=== PATIENT | male | born 1960 | race Two or more races ===

== ENCOUNTER 2024-10-13 22:49 | Emergency (ER) | payer MEDICAID ==
[~2024-10-13] VITALS: Ht 170.2 cm; Wt 86.2 kg
[2024-10-13] MEDS: methylPREDNISolone SOD SUCC 125 MG/2 ML VIAL IV ONE (01:10)
[2024-10-13 23:00] VITALS: O2SAT 96
[2024-10-13] MEDS: IPRATROPIUM BROMIDE 0.5 MG/2.5 ML NEBU NEB ONE (23:00)
[2024-10-13] MEDS: ALBUTEROL SULFATE 2.5 MG/3 ML NEBU NEB ONE (23:00)
[2024-10-13 23:47] LABS: BASOPHILS # (AUTO) 0.1 K/UL (0.0-0.2); BASOPHILS % (AUTO) 0.4 % (0.0-2.0); EOSINOPHILS # (AUTO) 0.6 K/uL (0.0-0.7); EOSINOPHILS % (AUTO) 4.1 % (0.0-7.0); HEMATOCRIT 42.4 % (36.7-47.1); HEMOGLOBIN 13.9 g/dL (12.5-16.3); LYMPHOCYTES # (AUTO) 2.2 K/uL (0.8-4.8); LYMPHOCYTES % (AUTO) 14.8 % (20.5-51.5); MEAN CORPUSCULAR HEMOGLOBIN 29.9 uug (23.8-33.4); MEAN CORPUSCULAR HGB CONC 33 g/dL (32.5-36.3); MEAN CORPUSCULAR VOLUME 91.2 fL (73.0-96.2); MONOCYTES # (AUTO) 1.3 K/uL (0.1-1.30); MONOCYTES % (AUTO) 8.7 % (0.0-11.0); NEUTROPHILS # (AUTO) 10.6 K/uL (1.8-8.9); PLATELET COUNT (AUTO) 201 K/uL (152-348); RED BLOOD CELL COUNT(AUTO) 4.66 MIL/uL (4.06-5.63); RED CELL DISTRIBUTION WIDTH 14.6 % (12.1-16.2); WHITE BLOOD COUNT (AUTO) 14.8 K/uL (3.6-10.2)
[2024-10-14] MEDS ORDERED: IPRATROPIUM BROMIDE 0.5 MG/2.5 ML NEBU ONE (00:07)
[2024-10-14] MEDS ORDERED: ALBUTEROL SULFATE 2.5 MG/3 ML NEBU ONE (00:07)
[2024-10-14 00:14] LABS: DIFFERENTIAL COMMENT 1
[2024-10-14 00:40] LABS: ALANINE AMINOTRANSFERASE 56 U/L (16-63); ALBUMIN 3.7 g/dL (3.4-5.0); ALKALINE PHOSPHATASE 90 U/L (50-136); ASPARTATE AMINOTRANSFERASE 45 U/L (15-37); BILIRUBIN,DIRECT 0.2 mg/dL (0.0-0.2); BILIRUBIN,TOTAL 0.7 mg/dL (0.2-1.0); CALCIUM 8.5 mg/dL (8.5-10.1); CARBON DIOXIDE 31 mmol/L (21-32); CHLORIDE 102 mmol/L (98-107); CREATININE 1.3 mg/dL (0.6-1.3); GLUCOSE 122 mg/dL (74-106); NT-PRO BNP 4912 pg/mL (0-125); SODIUM SERUM 140 mmol/L (136-145); TOTAL PROTEIN, SERUM 7.3 g/dL (6.4-8.2); UREA NITROGEN, BLOOD 19 mg/dL (7-18)
[2024-10-14] MEDS ORDERED: FUROSEMIDE 40 MG/4 ML VIAL ONE (01:11)
[2024-10-14] MEDS ORDERED: methylPREDNISolone SOD SUCC 125 MG/2 ML VIAL ONE (01:11)
[2024-10-14] MEDS: FUROSEMIDE 40 MG/4 ML VIAL IV ONE (01:15)
[2024-10-14 01:22] LABS: ABG BASE EXCESS 1.1 mmol/L (-2.0-3.0); ABG HCO3 26.2 mmol/L (21.0-28.0); ABG PCO2 43.2 mmHg (35.0-48.0); ABG PH 7.401 (7.350-7.450); ABG PO2 48.9 mmHg (83.0-108.0); ABG SITE ALINE; ABG TOTAL HEMOGLOBIN 15.3 G/dL (13.5-17.5); AaDO2 84.5 mmHg; COHb 2.7 % (0.5-1.5); MetHb 0.1 % (0.0-1.5); O2Hb 84.3 % (94.0-98.0)
== END 2024-10-14 01:30 | disposition left against medical advice (07) ==
LOC: ER 22:49
DX: I50.9 Heart failure, unspecified (principal); H34.821 Venous engorgement, right eye; E11.9 Type 2 diabetes mellitus without complications; J44.1 Chronic obstructive pulmonary disease with (acute) exacerbation; Z99.81 Dependence on supplemental oxygen
CPT/HCPCS: 99285; 96374; 71045; 80076; 80048; 83880; 85025; 84484; 93005; 36600 ×2; 96375; 94640; 82803; J2919; J1940; A4606; A4663; J3590